=== PATIENT | female | born 1960 | race Two or more races ===

== ENCOUNTER 2016-10-09 08:09 | Day surgery (SDC) | payer OTHER ==
[2016-09-30 12:43] VITALS: BMI 21.6
[2016-10-09] MEDS ORDERED: MIDAZOLAM HCL 2 MG/2 ML SINGLE DOSE VIAL ONE (10:12)
[2016-10-09] MEDS ORDERED: oxyCODONE HCL 5 MG TABLET PO PRN (10:51)
[2016-10-09] MEDS ORDERED: ONDANSETRON 4 MG/2 ML VIAL IVPUSH PRN (10:51)
[2016-10-09] MEDS ORDERED: PROMETHAZINE HCL 25 MG/1 ML VIAL IVPUSH PRN (10:51)
[2016-10-09] MEDS ORDERED: LACTATED RINGERS SOLUTION 1,000 ML IV SCH (11:00)
[2016-10-09] MEDS ORDERED: DESFLURANE GAS 240 ML BOTTLE IH ONE (11:49)
[2016-10-09] MEDS ORDERED: FAMOTIDINE 20 MG/50 ML IVPB 50 ML IVPB ONE ×2 (14:14→14:41)
[2016-10-09] MEDS ORDERED: FAMOTIDINE 20 MG PREMIXED IVPB IVPB ONE (14:17)
--- NOTE | 2016-10-09 14:17 | OP ---
Operative Note - Note: Operative Date: 10/09/16 Pre-Operative Diagnosis: Breast Asymmetry after Left Breast Recostruction Operation: Left Breast Recnstruction with removal of tissue automotive instructor, revision of implant pocket and insertion of permanent prosthesis. Right breast reconstruction for symmetry including vertical mastopexy with small parenchymal reduction and augmentation. Implants: Left: [place] MemoryGel Round, Smooth Moderate Plus Profile 300cc. Right [place] MemoryGel Round, SmoothModerate Plus Profile 100cc. Surgeon: Brown Kinney Operative Report Dictated: Yes
[2016-10-09 16:15] VITALS: BP 128/65; PULSE 85; TEMP 98
--- NOTE | 2016-10-10 13:05 | OP ---
DATE OF OPERATION: 10/09/2016 PROCEDURE PERFORMED: 1. Left breast reconstruction with removal of tissue mat machine operator, revision of implant pocket and insertion of permanent prosthesis. 2. Right breast reconstruction for symmetry including vertical mastopexy with small parenchymal reduction and augmentation. PREOPERATIVE DIAGNOSIS: Breast asymmetry after left breast reconstruction. POSTOPERATIVE DIAGNOSIS: Breast asymmetry after left breast reconstruction. SURGEON: Brown Gallagher MD ANESTHESIA: General. PROCEDURE: The patient was placed on the operating table in supine position and general anesthesia was administered by the anesthesiologist. The area of the chest was prepped and draped in the usual sterile fashion. The right breast was addressed first. Markings had been made one day prior to surgery with the patient in the standing position and these markings are now used as a guide for surgery. A 48-mm Malware[employer] cutter was used to dario a circular incision about the right nipple-areolar complex and this incision was made with a number 15 scalpel blade. A vertical mastopexy pattern was then incised using a 15 blade, including a small inframammary component. The incision in the inframammary fold was continued down using electrocautery until the inferior border of the pectoralis major muscle was identified. Much of the plane was developed with the assistance of fiberoptic-lighted retractors. The pocket was kept small and a 100-mL [place] Memory Gel round, smooth, Moderate Plus Profile implant was placed with the assistance of a Lyons funnel. Mastopexy then continued with elevation of lateral, medial and superior flaps. A small reduction was performed, removing some parenchyma from the inferior pole of the breast, approximately 50 grams in weight. Vertical pillars were then approximated using 3-0 Biosyn suture in interrupted fashion. Flaps were then inset, first by using 2-0 silk suture at the levine point at the 6 o'clock position under the nipple-areolar complex and in the midline inferiorly. Wounds were then closed in layered fashion. Deep tissues were closed with number 3-0 and 4-0 Biosyn sutures in interrupted buried fashion, and a deep dermal layer of 4-0 V-Loc 90 was placed in a continuous fashion for skin. The wound was secured with Steri-Strips. A procedure was then performed on the left breast that consisted of opening the inframammary incision that already existed and extending this laterally for approximately 3 cm further. The dissection continued down until the tissue mat machine operator was exposed and the tissue mat machine operator was deflated and removed without difficulty. Because of the thick capsule that had formed anteriorly, a capsulotomy was performed and the capsule was released circumferentially at its base. Hemostasis was achieved with electrocautery. The implant selected was a [place] smooth, round, Moderate Plus Profile implant, 300 mL in size. This was inserted, again with the assistance of a Lyons funnel, and a good, symmetric volume was appreciated at the conclusion of the procedure. This wound again was closed in layered fashion, deep tissues with number 3-0 Biosyn suture and a deep dermal layer of 4-0 V-Loc 90 was placed for skin. This wound again was secured with Steri-Strips. Sterile dressings were applied in a compressive fashion and secured with a surgical bra. The patient was then awoken from anesthesia without any difficulty and taken from the operating room to the recovery room in satisfactory condition, having tolerated the procedure well. BROWN GALLAGHER M.D. /[id number]
--- NOTE | 2016-10-13 15:18 | PATH ---
Surgical Pathology Report Patient Name: ROSLYN GONGORA [facility]. Rec. #: [id number] /Age/Gender: 1960 (Age: 56) / F Account: [id number] Location: [facility] Taken: 10/09/2016 Received: 10/09/2016 Reported: 10/13/2016 Physicians: Brown Kinney M.D. Specimen(s) Received A: RIGHT BREAST TISSUE B: LEFT BREAST TISSUE GAUGE CONTROLLER Clinical History Breast CA Final Diagnosis A. BREAST TISSUE, RIGHT, EXCISION: BENIGN BREAST TISSUE. SKIN WITH NO PATHOLOGIC FINDINGS. B. TISSUE GAUGE CONTROLLER, LEFT BREAST, REMOVAL: TISSUE GAUGE CONTROLLER, DESCRIBED (GROSS EXAMINATION ONLY). Electronically Signed Vangie Macdonald M.D. Gross Description A. Received in formalin, labeled "right breast tissue," is a 25 g, 6.0 x 5.5 x 1.0 cm aggregate of multiple flowers-yellow, irregular, unoriented portions of fibroadipose tissue admixed with flowers, unremarkable skin. Sectioning reveals foci of white fibrous tissue. Aircraft Machinist sections are submitted in one cassette. B. Received in formalin, labeled "left breast tissue forging press operator," is a 12.0 x 10.0 x 5.0 cm flowers, irregular device with a focal defect, consistent with a breast tissue forging press operator. No soft tissue is present. No sections are submitted, gross only. 10/10/2016 [facility]10/10/2016
== END 2016-10-09 16:17 | disposition home or self-care (01) ==
LOC: FASU 08:09
PROVIDERS: ATTEND Plastic Surgery
PROC: 0HQT0ZZ Repair Right Breast, Open Approach (ICD-10-PCS; 2016-10-09)
PROC: 0HBT0ZZ Excision of Right Breast, Open Approach (ICD-10-PCS; 2016-10-09)
PROC: 0HPU0NZ Removal of Tissue Expander from Left Breast, Open Approach (ICD-10-PCS; principal; 2016-10-09 11:46)
PROC: 0HRU0JZ Replacement of Left Breast with Synthetic Substitute, Open Approach (ICD-10-PCS; 2016-10-09 11:46)
DX: N65.1 Disproportion of reconstructed breast (principal)
CPT/HCPCS: 88300-TC; 88304-TC; 94760

== ENCOUNTER 2017-05-20 06:01 | Day surgery (SDC) | payer OTHER ==
[2017-05-18 09:08] VITALS: BMI 21.6
[2017-05-20] MEDS ORDERED: PROPOFOL 20 ML ONE ×2 (07:49→07:51)
[2017-05-20] MEDS ORDERED: MIDAZOLAM HCL 2 MG/2 ML SINGLE DOSE VIAL ONE (07:50)
[2017-05-20] MEDS ORDERED: ONDANSETRON 4 MG/2 ML VIAL ONE ×3 (07:50→10:54)
[2017-05-20] MEDS ORDERED: SUCCINYLCHOLINE CHLORIDE 200 MG/10 ML VIAL ONE (07:50)
[2017-05-20] MEDS ORDERED: GENTAMICIN SO4 80 MG/2 ML VIAL ONE (08:43)
[2017-05-20] MEDS ORDERED: ceFAZolin SODIUM 1 GM VIAL ONE ×3 (08:43→10:54)
[2017-05-20] MEDS ORDERED: oxyCODONE HCL 5 MG TABLET PO PRN ×2 (09:40→09:58)
[2017-05-20] MEDS ORDERED: ACETAMINOPHEN 500 MG TABLET (FP) PO PRN (09:40)
--- NOTE | 2017-05-20 09:48 | OP ---
Operative Note - Note: Operative Date: 05/20/17 Pre-Operative Diagnosis: Breast Asymmetry after Left Mastectomy Recostruction Operation: Left Breast Reconstruction Revision, Removal of Implant, Revision of Implant Pocket, Insertion of New Larger Implant Implants: [place] MemoryGel Round Textured Moderate-Plus Profile 400cc Post-Operative Diagnosis: Same as Pre-op Surgeon: Brown Kinney Anesthesia: General Specimens Removed: Old Silicone Prosthesis Estimated Blood Loss (mls): 20 Operative Report Dictated: Yes
[2017-05-20] MEDS ORDERED: ONDANSETRON 4 MG/2 ML VIAL IVPUSH PRN (09:58)
[2017-05-20] MEDS ORDERED: LACTATED RINGERS SOLUTION 1,000 ML IV SCH (10:00)
[2017-05-20] MEDS ORDERED: ACETAMINOPHEN 500 MG TABLET (FP) ONE (10:43)
--- NOTE | 2017-05-20 10:46 | OP ---
DATE OF OPERATION: 05/20/2017 PREOPERATIVE DIAGNOSIS: Breast asymmetry after left mastectomy reconstruction. POSTOPERATIVE DIAGNOSIS: Breast asymmetry after left mastectomy reconstruction. PROCEDURE PERFORMED: Left breast reconstruction revision with removal of implant, revision of implant pocket, and insertion of new larger prosthesis. SURGEON: Brown Gallagher MD ANESTHESIA: General. BRIEF HISTORY: The patient is status post left modified radical mastectomy with reconstruction and subsequent contralateral reconstruction for symmetry. The result left the right breast significantly larger than the left, and the patient is now for exchange of the left implant, revision of the pocket, and insertion of a larger implant. DESCRIPTION OF PROCEDURE: The patient was placed on the operating table in supine position, and general anesthesia was administered by the anesthesiologist. The area of the chest was prepped and draped in the usual sterile fashion, keeping the contralateral breast in the operative field. The previously made inframammary incision was partially reopened, and incision was carried down through subcutaneous tissues using electrocautery until the implant pocket was entered. The old implant was removed which was 300 mL in size. A fiberoptic Weitlaner retractor was used to facilitate extending the pocket both medially, laterally, and superiorly under direct vision. Again, hemostasis was achieved with electrocautery. A new implant was selected which was a [place] MemoryGel Siltex round moderate plus profile gel-filled prosthesis, 400 mL in size. This was inserted with the assistance of a Lyons funnel and fit well in the pocket. A good symmetric volume was appreciated with the patient in supine position. Closure was then begun. Deep tissues were closed with 3-0 Biosyn suture in interrupted buried fashion, and the skin was closed with No. 4-0 Prolene suture in a continuous subcuticular fashion. The wound was further secured with Steri-Strips, and surgical dressings were applied and secured with a surgical bra. BROWN GALLAGHER M.D. [id number]
[2017-05-20] MEDS ORDERED: PHENYLEPHRINE HCL 10 MG/1 ML SINGLE DOSE VIAL ONE (10:53)
[2017-05-20] MEDS ORDERED: DEXAMETHASONE SOD PHOSPHATE 4 MG/1 ML VIAL ONE (10:54)
[2017-05-20 13:24] VITALS: TEMP 97.9
[2017-05-20 13:55] VITALS: BP 110/72; PULSE 69
--- NOTE | 2017-05-21 11:12 | PATH ---
Surgical Pathology Report Patient Name: ROSLYN GONGORA [facility]. Rec. #: [id number] /Age/Gender: 1960 (Age: 56) / F Account: [id number] Location: [facility] Taken: 05/20/2017 Received: 05/20/2017 Reported: 05/21/2017 Physicians: Brown Kinney M.D. Specimen(s) Received LEFT BREAST IMPLANT Clinical History Left breast cancer Final Diagnosis METAL MACHINE OPERATOR, LEFT BREAST, REMOVAL: BREAST IMPLANT (GROSS ONLY). Electronically Signed Escobar Winslow M.D. Gross Description Received in formalin labeled "left breast implant," is a 12 cm in diameter x 3 cm in depth clear, rubbery breast implant. No soft tissue is present. No sections are submitted, gross only. /05/20/201705/20/2017
== END 2017-05-20 13:45 | disposition home or self-care (01) ==
LOC: FASU 06:01
PROVIDERS: ATTEND Plastic Surgery
PROC: 0HWU0JZ Revision of Synthetic Substitute in Left Breast, Open Approach (ICD-10-PCS; principal; 2017-05-20 08:05)
DX: N65.1 Disproportion of reconstructed breast (principal); Z90.11 Acquired absence of right breast and nipple; Z85.3 Personal history of malignant neoplasm of breast
CPT/HCPCS: 88300-TC; 94760

== ENCOUNTER 2018-05-27 08:47 | Day surgery (SDC) | payer OTHER ==
[2018-05-25 16:38] VITALS: BMI 21.6
[2018-05-27] MEDS ORDERED: BUPIVACAINE HCL/PF 0.5% (5MG/ML) 10 ML VIAL ONE (08:51)
--- NOTE | 2018-05-27 09:43 | HP ---
History & Physical Update - History History: No Change (Consent again reviewed with patient. H&P from 05/26/2018) - Physical Physical: No Change - Assessment Assessment: No Change - Plan Plan: No Change
[2018-05-27] MEDS ORDERED: ROCURONIUM BROMIDE 50 MG/5 ML VIAL ONE (10:16)
[2018-05-27] MEDS ORDERED: MIDAZOLAM HCL 2 MG/2 ML SINGLE DOSE VIAL ONE (10:16)
[2018-05-27] MEDS ORDERED: ceFAZolin SODIUM 1 GM VIAL ONE (10:16)
[2018-05-27] MEDS ORDERED: PROPOFOL 20 ML ONE (10:16)
[2018-05-27] MEDS ORDERED: LIDOCAINE HCL/PF 2% SDV 5ML VIAL ONE (10:16)
[2018-05-27] MEDS ORDERED: DESFLURANE GAS 240 ML BOTTLE IH ONE (10:21)
[2018-05-27] MEDS ORDERED: ceFAZolin SODIUM 1 GM VIAL IVPB ONE (10:40)
[2018-05-27] MEDS ORDERED: DEXAMETHASONE SOD PHOSPHATE 4 MG/1 ML VIAL ONE (11:14)
[2018-05-27] MEDS ORDERED: ONDANSETRON 4 MG/2 ML VIAL ONE (11:14)
[2018-05-27] MEDS ORDERED: GLYCOPYRROLATE 0.2 MG/1 ML VIAL ONE (11:57)
[2018-05-27] MEDS ORDERED: NEOSTIGMINE METHYLSULFATE 0.5 MG/ML - 10 ML MDV ONE (11:57)
--- NOTE | 2018-05-27 12:08 | EKG ---
Test Reason : Blood Pressure : / mmHG Vent. Rate : 080 BPM Atrial Rate : 080 BPM P-R Int : 168 ms QRS Dur : 082 ms QT Int : 398 ms P-R-T Axes : 077 -08 065 degrees QTc Int : 459 ms NORMAL SINUS RHYTHM NORMAL ECG WHEN COMPARED WITH ECG OF 17-MAR-2014 20:11, NO SIGNIFICANT CHANGE WAS FOUND Confirmed by PRICILLA LENZ MD ([id number]) on 05/27/2018 12:07:50 PM Referred By: NOLA GALLAGHER Confirmed By:PRICILLA LENZ MD
--- NOTE | 2018-05-27 12:19 | OP ---
Operative Note - Note: Operative Date: 05/27/18 Pre-Operative Diagnosis: Left breast cancer, asymmetry after reconstruction Operation: Right breast reconstruction and revision, Left breast change to shaped implant for staged reconstruction Post-Operative Diagnosis: Same as Pre-op Surgeon: Brown Kinney Glass Calibrator: Benedicto Upton Anesthesia: General Estimated Blood Loss (mls): 25 Fluid Volume Replaced (mls): 500 Operative Report Dictated: Yes
[2018-05-27] MEDS ORDERED: oxyCODONE HCL 5 MG TABLET PO PRN (12:20)
[2018-05-27] MEDS ORDERED: ONDANSETRON 4 MG/2 ML VIAL IVPUSH PRN (12:20)
[2018-05-27] MEDS ORDERED: ACETAMINOPHEN 1000 MG/100 ML VIAL (NON FORMULARY) IVPB PRN (12:21)
--- NOTE | 2018-05-27 12:21 | SURG ---
Surgery Favor Maker Note Favor Maker: Benedicto Upton PA-C Date of Service: 05/27/18 Diagnosis: Left breast cancer, asymmetry after reconstruction Procedure: Right breast reconstruction and revision, Left breast change to shaped implant for staged reconstruction I was present for the entirety of the operative procedure. For further detail, please refer to operative report.
[2018-05-27] MEDS ORDERED: LACTATED RINGERS SOLUTION 1,000 ML IV SCH (12:30)
[2018-05-27 13:37] VITALS: TEMP 98
--- NOTE | 2018-05-27 14:31 | OP ---
DATE OF OPERATION: 05/27/2018 AGE: 57. SEX: Female. PREOPERATIVE DIAGNOSIS: Breast asymmetry after breast cancer reconstruction. SURGEON: Brown Gallagher MD SHOP COORDINATOR: Benedicto Upton PA-C ANESTHESIA: General. PROCEDURE: The patient was on the operating table in supine position, and general anesthesia was administered by the anesthesiologist. The area of the chest was then prepped with Betadine and draped in usual sterile fashion. The patient had been marked 1 day prior to surgery in the standing position, and these markings were now used as a guide for surgery. The left breast was addressed first, and the inframammary incision, that had been previously made, was now reopened using a number-15 scalpel blade. Dissection was carried down through subcutaneous tissues using electrocautery. The implant was exposed and removed without difficulty. The implant pocket was further explored with the assistance of the fiberoptic-lighted retractor and enlarged to accommodate the new implant. The new implant selected was a [place] MemoryShape high-profile, medium-height, silicone gel-filled implant 345 mL in size. The pocket was irrigated with a dilute Betadine solution, and the implant was brought onto the field. The implant was inserted with the assistance of a Lyons funnel, and proper orientation was confirmed using the markings on the implant. This wound was then closed in layered fashion. Deep tissues were closed with number 3-0 Biosyn suture in interrupted, buried fashion and a deep dermal layer of 4-0 V-Loc 90 was used for skin. This wound was further secured with Steri-Strips. Attention was now drawn to the right breast where a revision of the previously performed mastopexy is to be performed. A 42-mm cookie cutter was used to create a circular incision circumferential to the border of the nipple-areolar complex. The outer incisions were made as marked preoperatively, and the area between was de-epithelialized. Hemostasis was achieved with the electrocautery, and skin flaps were created both medially, laterally, and superiorly and dissected adequately using the electrocautery. The levine sutures were placed using 2-0 silk suture, and closure was begun in a layered fashion. Deep tissues were closed with number 3-0 and 4-0 Biosyn suture in interrupted, buried fashion, and a deep dermal layer of 4-0 V-Loc 90 was used in continuous fashion for skin. The silk sutures previously placed were removed, and several 5-0 nylon interrupted sutures were placed. Steri-Strips were then applied, and sterile dressings were applied and secured with a surgical bra. The patient was then awoken from anesthesia without any difficulty and taken from the operating room to the recovery room in satisfactory condition, having tolerated the procedure well. BROWN GALLAGHER M.D. /[id number]
[2018-05-27 16:42] VITALS: BP 125/77; PULSE 80
== END 2018-05-27 16:25 | disposition home or self-care (01) ==
LOC: JASU-SURG 08:47
PROVIDERS: ATTEND Plastic Surgery
PROC: 0HPU0JZ Removal of Synthetic Substitute from Left Breast, Open Approach (ICD-10-PCS; 2018-05-27)
PROC: 0HRU0JZ Replacement of Left Breast with Synthetic Substitute, Open Approach (ICD-10-PCS; 2018-05-27)
PROC: 0HRT07Z Replacement of Right Breast with Autologous Tissue Substitute, Open Approach (ICD-10-PCS; 2018-05-27)
PROC: 0HRU0JZ Replacement of Left Breast with Synthetic Substitute, Open Approach (ICD-10-PCS; principal; 2018-05-27 09:30)
DX: N65.1 Disproportion of reconstructed breast (principal)
CPT/HCPCS: 93005; 93010; 94760; J0131

== ENCOUNTER 2020-11-27 04:22 | Inpatient (IN) | payer OTHER ==
[2020-11-23 16:02] VITALS: BMI 24.1
[2020-11-27] MEDS ORDERED: ISOSULFAN BLUE 50 MG/5 ML VIAL SQ ONE (07:37)
[2020-11-27] MEDS ORDERED: PROPOFOL 20 ML ONE ×2 (07:38)
[2020-11-27] MEDS ORDERED: ROCURONIUM BROMIDE 50 MG/5 ML SYRINGE ONE ×2 (07:38→08:24)
[2020-11-27] MEDS ORDERED: MIDAZOLAM HCL 2 MG/2 ML SINGLE DOSE VIAL ONE ×2 (07:38)
[2020-11-27] MEDS ORDERED: ceFAZolin SODIUM 1 GM VIAL IVPB ONE (09:20)
[2020-11-27] MEDS ORDERED: NEOSTIGMINE METHYLSULFATE 0.5 MG/ML - 10 ML MDV ONE (11:08)
[2020-11-27] MEDS ORDERED: ONDANSETRON 4 MG/2 ML VIAL IVPUSH PRN ×2 (11:42→12:16)
[2020-11-27] MEDS ORDERED: oxyCODONE HCL 5 MG TABLET PO PRN (11:42)
[2020-11-27] MEDS ORDERED: LACTATED RINGERS SOLUTION 1,000 ML IV SCH ×2 (11:45→12:15)
[2020-11-27] MEDS ORDERED: ACETAMINOPHEN 1000 MG/100 ML VIAL (NON FORMULARY) IVPB ONE ×2 (12:12→12:38)
[2020-11-27] MEDS ORDERED: ACETAMINOPHEN INJECTION 100 ML IVPB ONE (12:20)
[2020-11-27] MEDS ORDERED: HYDROmorphone *PCA* 10MG/50ML DISP.SYRIN PCA ONE (12:40)
[2020-11-27] MEDS ORDERED: HYDROmorphone *PCA* 10MG/50ML DISP.SYRIN ONE (12:44)
[2020-11-27] MEDS ORDERED: DEXAMETHASONE SOD PHOSPHATE 4 MG/1 ML VIAL IVPUSH PRN (13:17)
[2020-11-27] MEDS ORDERED: HYDROmorphone *PCA* 10MG/50ML DISP.SYRIN PCA SCH (13:30)
[2020-11-27] MEDS ORDERED: DEXTROSE 5%-WATER - 50 ML IVPB ONE (18:17)
[2020-11-27] MEDS ORDERED: ceFAZolin SODIUM 1 GM VIAL ONE (18:17)
[2020-11-27] MEDS: CEFAZOLIN 1 GM in DEXTROSE 5%-WATER - 1 GM/50 ML IVPB IVPB SCH (18:23)
[2020-11-27] MEDS: ACETAMINOPHEN 325 MG TABLET (FP) PO SCH (20:21)
[2020-11-28] MEDS ORDERED: ceFAZolin SODIUM 1 GM VIAL ONE ×2 (01:18→09:12)
[2020-11-28] MEDS ORDERED: DEXTROSE 5%-WATER - 50 ML IVPB ONE ×2 (01:18→09:12)
[2020-11-28] MEDS: CEFAZOLIN 1 GM in DEXTROSE 5%-WATER - 1 GM/50 ML IVPB IVPB SCH ×2 (02:54→09:35)
[2020-11-28] MEDS: ACETAMINOPHEN 325 MG TABLET (FP) PO SCH ×2 (02:55→09:35)
[2020-11-28 06:34] VITALS: PULSE 67
[2020-11-28] MEDS ORDERED: ACETAMINOPHEN 325 MG TABLET (FP) PO PRN (09:03)
[2020-11-28] MEDS ORDERED: PT OWN MED DRAWER 7, Y5N ONE (09:34)
[2020-11-28] MEDS ORDERED: ATORVASTATIN CA 10 MG TABLET (FP) PO SCH (10:00)
[2020-11-28] MEDS ORDERED: EXEMESTANE 25 MG TABLET PO SCH (10:00)
[2020-11-28] MEDS ORDERED: MULTIVITAMINS (DAILY MVI) TABLET (FP) PO SCH (10:00)
[2020-11-28] MEDS ORDERED: PCA PUMP NR ONE (11:11)
[2020-11-28 11:54] VITALS: BP 118/71; TEMP 98
== END 2020-11-28 14:41 | disposition home or self-care (01) | DRG 362 ==
LOC: J2C 04:22 → J6S 13:43
PROVIDERS: ADMIT Surgery; ATTEND Surgery
PROC: 0HRU0JZ Replacement of Left Breast with Synthetic Substitute, Open Approach (ICD-10-PCS; 2020-11-27)
PROC: 0HTT0ZZ Resection of Right Breast, Open Approach (ICD-10-PCS; principal; 2020-11-27 08:30)
PROC: 0HHT0NZ Insertion of Tissue Expander into Right Breast, Open Approach (ICD-10-PCS; 2020-11-27 08:30)
PROC: 0HRT0JZ Replacement of Right Breast with Synthetic Substitute, Open Approach (ICD-10-PCS; 2020-11-27 08:30)
PROC: 0HPU0JZ Removal of Synthetic Substitute from Left Breast, Open Approach (ICD-10-PCS; 2020-11-27 08:30)
DX: C50.911 Malignant neoplasm of unspecified site of right female breast (principal); Z45.812 Encounter for adjustment or removal of left breast implant; E78.5 Hyperlipidemia, unspecified
CPT/HCPCS: 86850; 86900; 86901; 86922; 88300-TC; 88307-TC; 94760; J0131

== ENCOUNTER 2021-05-24 07:48 | Day surgery (SDC) | payer OTHER ==
[2021-05-21 12:06] VITALS: BMI 21.6
[2021-05-24] MEDS ORDERED: BUPIVACAINE HCL 100 ML ONE (09:37)
[2021-05-24] MEDS ORDERED: VANCOMYCIN 1,000 MG VIAL (RESTRICTED TO ID ONLY) ONE (09:37)
[2021-05-24] MEDS ORDERED: GENTAMICIN SO4 80 MG/2 ML VIAL ONE (09:37)
[2021-05-24] MEDS ORDERED: ceFAZolin SODIUM 1 GM VIAL ONE (09:37)
[2021-05-24] MEDS ORDERED: LIDOCAINE 1%/EPI 1:100000 (20 ML MULTI DOSE VIAL) ONE (09:38)
[2021-05-24] MEDS ORDERED: MIDAZOLAM HCL 2 MG/2 ML SINGLE DOSE VIAL ONE (09:44)
[2021-05-24] MEDS ORDERED: PROPOFOL 20 ML ONE (09:45)
[2021-05-24] MEDS ORDERED: PROMETHAZINE HCL 25 MG/1 ML VIAL IVPB PRN (11:11)
[2021-05-24] MEDS ORDERED: oxyCODONE HCL 5 MG TABLET PO PRN (11:11)
[2021-05-24] MEDS ORDERED: ONDANSETRON 4 MG/2 ML VIAL IVPUSH PRN (11:11)
[2021-05-24] MEDS ORDERED: LACTATED RINGERS SOLUTION 1,000 ML IV SCH (11:15)
[2021-05-24 12:47] VITALS: BP 124/78; PULSE 66; TEMP 97.8
== END 2021-05-24 12:47 | disposition home or self-care (01) ==
LOC: FASU 07:48
PROVIDERS: ATTEND Plastic Surgery
PROC: 0HRT0JZ Replacement of Right Breast with Synthetic Substitute, Open Approach (ICD-10-PCS; 2021-05-24)
PROC: 0HPT0NZ Removal of Tissue Expander from Right Breast, Open Approach (ICD-10-PCS; 2021-05-24)
PROC: 0HPT0NZ Removal of Tissue Expander from Right Breast, Open Approach (ICD-10-PCS; principal; 2021-05-24 10:23)
DX: Z85.3 Personal history of malignant neoplasm of breast (principal); Z90.11 Acquired absence of right breast and nipple
CPT/HCPCS: 11970; 19380; L8600; 88304-TC; 94760